=== PATIENT | male | born 1985 | race Asian ===

== ENCOUNTER 2018-06-18 20:02 | Emergency (ER) | payer BC ==
[~2018-06-18] VITALS: Ht 177.8 cm; Wt 89.8 kg
[2018-06-18 20:26] VITALS: Ht 177.8 cm; Wt 89.8 kg
[2018-06-18 22:45] VITALS: BP 153/96
== END 2018-06-18 22:45 | disposition home or self-care (01) ==
LOC: ED 20:02
DX: J02.9 Acute pharyngitis, unspecified (principal); R51 Headache; I10 Essential (primary) hypertension; F17.210 Nicotine dependence, cigarettes, uncomplicated
CPT/HCPCS: J1885

== ENCOUNTER 2019-02-12 13:27 | Emergency (ER) | payer BC ==
[~2019-02-12] VITALS: Ht 180.3 cm; Wt 102.1 kg
[2019-02-12 13:39] VITALS: Ht 180.3 cm; Wt 102.1 kg
[2019-02-12 14:30] LABS: BASOPHIL % 0.4 % (0-2); PLATELET COUNT 251 x10^3mcL (130-400); RED CELL DISTRIBUTION WIDTH 12.6 % (11.5-14.5)
[2019-02-12 14:50] LABS: CALCIUM 8.7 mg/dL (8.5-10.1); CARBON DIOXIDE 28.5 mmol/L (21-32); CHLORIDE SERUM 102 mmol/L (98-107); CREATININE SERUM 0.8 mg/dL (0.7-1.3); GFR1 > 60 mL/min; GLUCOSE SERUM 114 mg/dL (74-106); POTASSIUM SERUM 3.6 mmol/L (3.5-5.1); SODIUM SERUM 139 mmol/L (136-145)
[2019-02-12 14:54] LABS: ALBUMIN 4.1 g/dL (3.4-5.0); ALKALINE PHOSPHATASE 79 U/L (46-116); ALT/SGPT 32 U/L (16-63); AST/SGOT 13 U/L (15-37); BILIRUBIN TOTAL 0.4 mg/dL (0.20-1.00); LIPASE 120 IU/L (73-393); TOTAL PROTEIN, SERUM 7.2 g/dL (6.4-8.2)
[2019-02-12 16:25] VITALS: BP 178/104
== END 2019-02-12 16:25 | disposition home or self-care (01) ==
LOC: ED 13:27
PROVIDERS: Emergency Medicine
DX: R10.84 Generalized abdominal pain (principal); I10 Essential (primary) hypertension
CPT/HCPCS: J1885; J7030